=== PATIENT | male | born 1945 | race Caucasian/White ===

== ENCOUNTER 2019-01-13 08:45 | Outpatient (CLI) | payer MEDICARE, BC, SELFPAY ==
[2019-01-13 09:28] LABS: Hemoglobin A1C 5.4 % (4.5-6.2)
[2019-01-13 10:19] LABS: Glucose 99 mg/dL (70-100)
== END 2019-01-13 09:05 ==
PROVIDERS: PCP Nurse Practitioner; Visit Provider Nurse Practitioner
DX: E11.9 Type 2 diabetes mellitus without complications (principal); R73.01 Impaired fasting glucose
CPT/HCPCS: 36415; 82947; 83036

== ENCOUNTER 2019-05-21 10:11 | Outpatient (REF) | payer MEDICARE, BC, SELFPAY ==
[2019-05-23 11:38] LABS: Campylobacter PCR SEE COMMENTS; Salmonella PCR SEE COMMENTS; Shiga Toxin PCR SEE COMMENTS; Shigella/Enteroinvasive Ecoli SEE COMMENTS
== END 2019-05-21 10:31 ==
LOC: LBN 10:11
PROVIDERS: PCP Nurse Practitioner; Visit Provider Family Medicine
DX: R19.7 Diarrhea, unspecified (principal)
CPT/HCPCS: 87329; 87505

== ENCOUNTER 2020-09-21 01:59 | Outpatient (CLI) | payer MEDICARE, BC, SELFPAY ==
[2020-09-23 23:23] LABS: Patient Race White; SARS-CoV-2 RNA Undetected (Undetected); SARS-CoV-2 Specimen Source Nasal
== END 2020-09-21 02:19 ==
PROVIDERS: PCP Nurse Practitioner; Visit Provider Family Medicine
DX: Z20.828 Contact with and (suspected) exposure to other viral communicable diseases (principal)
CPT/HCPCS: U0003

== ENCOUNTER 2020-11-27 03:27 | Outpatient (CLI) | payer MEDICARE, BC, SELFPAY ==
[2020-11-27 15:21] LABS: HCT 46.7 % (40.0-50.0); HGB 15.7 g/dL (13.5-17.5); MCHC 33.6 % (32.0-36.0); MCV 92.1 fL (80-95); MPV 10.1 fL (8.0-11.0); Platelet Count 241 10^3/uL (130-400); RBC 5.07 10^6/uL (4.36-5.78); RDW 12.2 % (11.8-14.1); RDW-SD 41.6 fL; WBC 8.27 10^3/uL (4.4-10.8)
[2020-11-27 16:03] LABS: Hemoglobin A1C 5.4 % (<5.7)
[2020-11-27 16:39] LABS: Calculated LDL 177 mg/dL (<100); Cholesterol 300 mg/dL (<200); HDL Cholesterol 53 mg/dL (40-60); Triglyceride 350 mg/dL (<150)
[2020-11-27 16:55] LABS: ALT 28 U/L (16-63); AST 17 U/L (15-37); Albumin 3.7 g/dL (3.4-5.0); Alkaline Phosphatase 71 U/L (46-116); Anion Gap 9.8 mmol/L (3-11); BUN 16 mg/dL (7-18); Bilirubin, Total 0.8 mg/dL (0.2-1.0); CO2 27.2 mmol/L (21.0-32.0); CREATININE 1.19 mg/dL (0.70-1.30); Calcium 8.8 mg/dL (8.5-10.1); Chloride 105 mmol/L (98-107); Glucose 110 mg/dL (74-106); Sodium 142 mmol/L (136-145); Total Protein 6.9 g/dL (6.4-8.2); Vitamin B12 594 pg/mL (193-986)
== END 2020-11-27 03:47 ==
PROVIDERS: Nurse Practitioner; PCP Nurse Practitioner; Visit Provider Nurse Practitioner
DX: E11.9 Type 2 diabetes mellitus without complications (principal); E78.5 Hyperlipidemia, unspecified; E53.8 Deficiency of other specified B group vitamins; J02.9 Acute pharyngitis, unspecified
CPT/HCPCS: 80053; 80061; 85027; 82607; 83036; 84443

== ENCOUNTER 2020-12-05 02:46 | Outpatient (CLI) | payer MEDICARE, OTHER, SELFPAY ==
--- NOTE | 2020-12-05 08:00 | DI.US_ITS ---
EXAM: US THYROID CLINICAL HISTORY: tender r thyroid lobe,SORE THROAT, ACUTE PHARYNGITIS,J02.9. TECHNIQUE: Ultrasound thyroid performed using standard protocol. COMPARISON: No exams were available for comparison FINDINGS: The right thyroid lobe measures 0.9 cm AP x 2 centimetres wide by 4.2 cm cephalocaudal. There are 3 focal findings in the right lobe. Inferiorly there is a 2 millimeter benign colloid cyst . More superiorly there is a small 2 x 2 millimeters solid nodule. At the midpole level there is a well-defined solid nodule measuring 5 x 5 x 4 millimeters which is relatively isoechoic to the surrou nding parenchyma and is wider than taller with smooth well-defined margins and no echogenic foci ther ein. Total points =3 Isthmus measures 1.5 millimeters thick and does not contain nodules. The left thyroid lobe measures 0.9 centimeters AP x 1.9 centimetres wide by 3.8 centimeters cephaloca udal. There is a solitary finding in the left lobe which is a tiny 1 x 1.3 millimeter benign colloid cyst. There is no significant lymphadenopathy. However, incidentally noted is significant noncalcified stefania que in the proximal right internal carotid artery which is associated with elevated velocities/hemody namically significant stenosis. IMPRESSION: 1. Both thyroid lobes exhibit normal size, as does the isthmus. 2. There is a 5 x 4 millimeter solid small nodule in the mid aspect of the right thyroid lobe, as trudi cribed above. TiRads 3. Recommend repeat thyroid ultrasound in 6 months. 3. Incidentally noted is significant atherosclerotic disease in the right internal carotid artery as described above. Recommend follow-up bilateral carotid artery ultrasound Doppler study. DATA REPOSITORY:
== END 2020-12-05 03:06 ==
PROVIDERS: PCP Nurse Practitioner; Visit Provider Nurse Practitioner
DX: J02.9 Acute pharyngitis, unspecified (principal); E04.1 Nontoxic single thyroid nodule; I65.21 Occlusion and stenosis of right carotid artery
CPT/HCPCS: 76536

== ENCOUNTER 2020-12-13 01:09 | Outpatient (CLI) | payer MEDICARE, OTHER, SELFPAY ==
--- NOTE | 2020-12-13 07:15 | DI.US_ITS ---
EXAM: US CAROTID CLINICAL HISTORY: High velocity, stenosis noted right, on thyroid US,i65.21 TECHNIQUE: Ultrasound performed using standard protocol. COMPARISON: US US THYROID from 12/05/2020 FINDINGS: Duplex evaluation of the carotid circulation was performed according the usual protocol. There is mi ld visible atheromatous plaque in the carotid bifurcations bilaterally. There is flow velocity eleva tion in proximal to mid internal carotid arteries bilaterally consistent with 50-69 percent luminal d iameter stenosis. No other significant findings in common, internal, or external carotid arteries. There is bilateral antegrade vertebral flow. IMPRESSION: Elevated flow velocities in internal carotid arteries bilaterally consistent with 50-69 percent lumin al diameter stenosis in both right and left internal carotid arteries. DATA REPOSITORY:
== END 2020-12-13 01:29 ==
PROVIDERS: PCP Nurse Practitioner; Visit Provider Nurse Practitioner
DX: I65.23 Occlusion and stenosis of bilateral carotid arteries (principal)
CPT/HCPCS: 93880

== ENCOUNTER 2020-12-21 08:19 | Outpatient (CLI) | payer MEDICARE, OTHER, SELFPAY ==
[2020-12-22 16:57] LABS: COVID-19 RT-PCR Result NEGATIVE (Negative)
== END 2020-12-21 08:39 ==
PROVIDERS: PCP Nurse Practitioner; Visit Provider Family Medicine
DX: Z11.52 Encounter for screening for COVID-19 (principal); Z01.810 Encounter for preprocedural cardiovascular examination
CPT/HCPCS: U0003

== ENCOUNTER 2020-12-27 06:35 | Outpatient (CLI) | payer MEDICARE, OTHER, SELFPAY ==
--- NOTE | 2020-12-27 09:00 | ETT_ITS ---
APPROVED REPORT Exam: Exercise Treadmill Patient Location: Out-Patient Room/Bed: Stress Nurse: Ladi Vazquez RN Ordering Provider:YRNIfeoma LEE, Contact Number: [phone] BMI: 22.52 Baseline Rhythm: Sinus Bradycardia Indications: chest pain, hyperlipidemia, reaction to MPI Medical History Medical History: Hypertension, hyperlipidemia, carotid stenosis, thyroid nodule Cardiac Medications: atorvastatin Allergies: Penicillin Cardiac Risk Factors: Hypertension, hyperlipidemia, smoker (former), PVD/VCD Previous Cardiac Procedures: None Pretest Chest Pain Characteristics: None Exercise History: Physically active Physical Disabilities: None Lung Sounds: Clear to auscultation Heart Sounds: Regular Stress Test Details Test: Exercise stress testing was performed using a Derrick protocol. Rest Stress HR Resting HR Supine: 51 bpm Max Heart Rate (APMHR): 147 bpm Resting HR Standin/82 bpm Target HR (85% APMHR): 124 bpm Max HR Achieved: 167 bpm % of APMHR: 113 Recovery HR: 90 bpm HR response to stress: Normal HR response to stress BP Resting BP Supine: 150/82 mmHg Resting BP Standin/86 mmHg Max BP: 166/72 mmHg Recovery BP: 154/70 mmHg ECG Resting ECG: Sinus Bradycardia Ectopy: PVC Stress ECG: Sinus Tachycardia ST Change: Upsloping ST depression Arrhythmia: PVC Recovery ECG: Sinus Rhythm Recovery ST Change: No significant ST segment changes noted Clinical Reason for Termination: Light fatigue Stress Symptoms: Light fatigue Exercise duration: 14 min01 sec Highest Stage Reached: 5 Exercise capacity: 15 METs Chinchilla Treadmill Score: 15 Rate Pressure Product: [id number] Stress ECG Conclusion 1. The patient exercised for 14 minutes (15 METS). Exercise was stopped due to fatigue. 2. Patient no symptoms suggestive of ischemia. 3. There is no evidence of ischemia on the ECG portion of the exam. 4. The Chinchilla Score (13) estimates an annual cardiovascular mortality of 0% and a five year survival of 96%. Using the Chinchilla Score there is a low probability of any angiographic coronary disease. Chinchilla Treadmill Score is 15 which is Low risk. Stress Test Summary STAGE Time (mins) Speed (mph) Grade (%) HR BP SYMPTOMS METS Supine 51 150/82 Standing 68 144/86 1 3 1.7 10 100 152/80 4.6 2 6 2.5 12 119 158/76 7 3 9 3.4 14 136 166/72 10.2 4 12 4.2 16 141 12.9 5 15 5.0 18 160 17.2 1 min recovery 133 156/60 3 min recovery 85 164/68 6 min recovery 90 154/70
== END 2020-12-27 06:55 ==
PROVIDERS: PCP Nurse Practitioner; Visit Provider Nurse Practitioner
DX: R07.9 Chest pain, unspecified (principal); E78.5 Hyperlipidemia, unspecified; R94.39 Abnormal result of other cardiovascular function study; I10 Essential (primary) hypertension; Z87.891 Personal history of nicotine dependence; I73.9 Peripheral vascular disease, unspecified
CPT/HCPCS: 93016; 93018; 93017

== ENCOUNTER → 2021-01-31 09:01 | Outpatient (BNVA) | payer MEDICARE, OTHER, SELFPAY | PROVIDERS: PCP Nurse Practitioner; Referring Provider Nurse Practitioner; Visit Provider Physical Therapy Assistant | DX: R19.5 Other fecal abnormalities (principal) | CPT/HCPCS: 99203 ==

== ENCOUNTER 2021-03-04 04:13 | Outpatient (CLI) | payer MEDICARE, OTHER, SELFPAY ==
[2021-03-04 12:10] LABS: Source Nasal/Nares
[2021-03-04 17:16] LABS: COVID-19 PCR Negative (Negative)
== END 2021-03-04 04:14 | disposition home or self-care (01) ==
LOC: LBO 04:13
PROVIDERS: PCP Nurse Practitioner; Visit Provider Surgery
DX: Z20.822 Contact with and (suspected) exposure to COVID-19 (principal); Z01.818 Encounter for other preprocedural examination
CPT/HCPCS: 87635

== ENCOUNTER 2021-03-06 08:04 | Day surgery (SDC) | payer MEDICARE, OTHER, SELFPAY ==
--- NOTE | 2021-03-06 06:38 | W.PREOPHP ---
Date of service: 03/06/21 Time of Service: 08:52 Assessment and Plan Assessment and plan (1) Positive colorectal cancer screening using Cologuard test: Status: Acute Assessment and plan: The patient is here for Colonoscopy pre-op. He has no family history of colon cancer. He has not had any bowel habit changes. -Discussed colonoscopy bowel prep as well as the procedure. Discussed possible complications of the procedure to include bleeding, pain, perforation, missed small lesion/polyp, sore throat, aspiration and adverse reaction to the medications. Questions were answered to patient?s satisfaction. No guarantees were implied or given History of Present Illness Narrative: 75 y/o male with history of carotid artery stenosis and anxiety presents for colonoscopy pre-op after having a postive cologuard test. He has never had a Colonoscopy. He denies a family history of colon cancer. He denies any changes in bowel habits including bloody or black tarry stools, abdominal pain, diarrhea or constipation. He denies constitutional symptoms. Denies use of marijuana or any other recreational or illegal drugs. He denies chest pain, palpitations, dyspnea or dyspnea with exertion. He walks for 75 mins/day. He denies prior family history of adverse reactions or complications with anesthesia. He has never had anesthesia. The patient denies any history of stroke, ND, seizures, bleeding or clotting disorders. He denies having any implanted metal in his body. No changes in his health since he was last seen in the office Review of Systems Cardiovascular Cardiovascular: Denies chest pain, Denies chest pain at rest, Denies irregular heart rhythm, Denies dyspnea and Denies dyspnea on exertion Respiratory Respiratory: Denies cough, Denies dyspnea and Denies dyspnea on exertion Gastrointestinal Gastrointestinal: Reports as per HPI Genitourinary Genitourinary: Denies dysuria, Denies urinary incontinence and Denies urinary urgency Endocrine Endocrine: Reports system reviewed and no additional complaints, except as documented Hematologic/Lymphatic Hematologic/Lymphatic: Denies easy bruising and Denies lymphadenopathy [facility] Medical History Anxiety B12 deficiency Bilateral hand pain (10/11/15) Carotid stenosis, right Cervicalgia (12/25/20) Dr. Hunter to PT Chest pain due to psychological stress Chronic sore throat (02/11/16) Eczema (02/26/15) Epicondylitis (02/26/15) Hyperlipidemia (02/26/15) Left inguinal hernia (10/31/15) Low back pain (02/26/15) Nasal lesion Pain in left testicle (10/31/15) Positive colorectal cancer screening using Cologuard test Right foot pain (10/11/15) Right inguinal hernia (10/31/15) Right thyroid nodule 11/2020, repeat 02/2021 Rosacea (02/26/15) Family History Father No problems noted. Mother No problems noted. Social History Smoking/Tobacco Use Status: Former Tobacco Use Smoking risk assessment performed?: Yes Alcohol Intake: current Alcohol Intake frequency: 3 or more drinks per day Alcohol type: wine and hard liquor Drug use: Never Substance use type: does not use Do you feel safe at home: Yes Do you feel safe in your relationship?: Yes Meds Home Medications and Allergies Allergies Allergy/AdvReac Type Severity Reaction Status Date / Time Penicillins Allergy Unknown unknown Verified 03/06/21 08:23 Home Medications Medication Instructions Recorded Confirmed Type aspirin 81 mg tablet,delayed 81 mg PO DAILY 01/31/21 03/06/21 History release omega-3 fatty acids 1,000 mg 1,000 mg PO DAILY 01/31/21 03/06/21 History capsule atorvastatin 20 mg PO DAILY 03/05/21 03/06/21 History copper 2 mg PO DAILY 03/06/21 03/06/21 History zinc 10 mg PO DAILY 03/06/21 03/06/21 History Exam Const General: healthy appearing and comfortable Resp Effort & Inspection: normal respiratory effort Auscultation: clear to auscultation bilaterally Cardio Rate: regular rate Rhythm: regular rhythm Heart Sounds: no click, no gallops and no murmurs
--- NOTE | 2021-03-06 06:41 | W.COLOREPORT ---
Date of service: 03/06/21 Time of Service: 09:24 Colonoscopy Report Date of procedure: 03/06/21 Pre-op diagnosis general: + Cologuard Post-op diagnosis procedure note: other (colorectal polyps, mild diverticulosis) Procedure: Colonoscopy with polypectomy Surgeon: Dana Nguyen Anesthesia Type: General:No Airway (ASA 2/Bret Case, RED) Estimated blood loss (mL): 3 Pathology: other (Transverse polyp, sigmoid polyp) Complications: None Disposition: same day Indications: The patient is here for Colonoscopy pre-op. He has no family history of colon cancer. He has not had any bowel habit changes. -Discussed colonoscopy bowel prep as well as the procedure. Discussed possible complications of the procedure to include bleeding, pain, perforation, missed small lesion/polyp, sore throat, aspiration and adverse reaction to the medications. Questions were answered to patient?s satisfaction. No guarantees were implied or given Prep: Miralax/Dulcolax Procedure Start Time: :24 Procedure End Time: :46 Retraction Time: 16 minutes Findings: 2 small polyps mild sigmoid diverticulosis Procedure Description: After informed consent was obtained the patient was taken to the procedure room and placed in a left decubitous position. Monitors were applied and a time out was done. The patients name, date of , procedure, allergies to medications and metal in their body was reviewed. The patient was then sedated. Once sedated and comfortable a rectal exam was done. External exam was normal. Internal exam revealed a normal sphincter tone and no palpable masses. The prostate felt normal. The scope was then introduced and retro-flexed. No internal hemorrhoids, polyps or masses were identified on retro-flexion. The scope was then advanced to the cecum without difficulty. The ileocecal vlave and appendiceal orifice were identified. The prep was adequate. The scope was then slowly retracted over 16 minutes back into the rectum. Polyps were removed with cold forceps in the transverse colon and sigmoid colon. There was mild diverticulosis in the sigmoid colon noted. The scope was removed and the patient was woken up and taken back to Same day surgery in stable condition. The patient tolerated the procedure well and there were no immediate complications. Follow up: The patient should follow up in 5 years unless they develop changes in bowel habits or other new gastrointestinal complaints.
--- NOTE | 2021-03-06 06:42 | PDOC.DSDIS_ITS ---
Discharge Plan Disposition Patient Disposition: HOME Condition: Good Discharge Details Reason For Visit: colonoscopy Attending Provider: Dana Nguyen Primary Care Provider: Michelle Izquierdo Home Meds and New Rx's Prescriptions: Continued aspirin [Adult Aspirin Regimen] 81 mg tablet,delayed release (DR/EC) 81 mg PO DAILY RF: 0 omega-3 fatty acids 1,000 mg capsule 1,000 mg PO DAILY RF: 0 atorvastatin 40 mg tablet 20 mg PO DAILY RF: 0 copper 2 mg Tablet 2 mg PO DAILY RF: 0 zinc 10 mg Tablet 10 mg PO DAILY RF: 0 coenzyme Q10 [CoQ-10] 30 mg Capsule PO DAILY RF: 0 vitamin B complex Capsule 1 cap PO DAILY RF: 0 copper 2 mg Tablet PO RF: 0 Heart And Body Extract RF: 0 Ligaplex PO RF: 0 nutritional supplement-fiber Liquid RF: 0 Herincare RF: 0 Discontinued polyethylene glycol 3350 17 gram/dose powder 238 g PO ONCE Qty: 238 RF: 0 bisacodyl [Dulcolax (bisacodyl)] 5 mg tablet,delayed release (DR/EC) 5 mg PO ONCE Qty: 4 RF: 0 Discharge Instructions Instructions: Colorectal Polyps (DC), Diverticulosis (DC) Additional Instructions: Findings: 2 small polyps Mild diverticulosis Follow up: Most likely 5 years. I will send a letter with results Please call if you develop: fevers >101.5 Nausea or Vomiting Abdominal pain that is not transient DAY SURGERY UNIT POST ENDOSCOPY INSTRUCTIONS 1. Because there will be medication in your system for the next 24 hours, you may feel a little sleepy. Your coordination will be affected. Therefore: a. Do not drive or operate dangerous equipment for 24 hours. b. Do not drink alcohol beverages for 24 hours (not even beer). c. Plan to go home and rest for the day. 2. Generally there are no restrictions on your activity after a day or so has gone by, but you may feel a bit fatigued for a few days. 3 After you arrive home you may have a light meal and return to a normal diet as you can tolerate it without feeling sick to your stomach. 4. After surgery, you may feel pain or discomfort. This should be only transient, but if it persists please contact your doctor. 5. If there are any questions regarding the findings of your procedure, please f eel free to contact your doctor. 6. If you are unable to contact your doctor with a problem, contact the hospital at [phone]. 4. Continue all your regular medications unless directed otherwise. I understand the above instructions and have no questions. Signature of Patient or Responsible Adult Escort Date/Time Name of Responsible Adult Escort Signature of Nurse Date/Time Activity:: Activity as Tolerated Diet:: High Fiber Diet Discharge Orders Discharge Orders: Discharge Order (Routine); Ordered 03/06/21 Ordered By: Dana Nguyen DS: Diagnosis Discharge Diagnosis (1) Positive colorectal cancer screening using Cologuard test: Status: Acute
[2021-03-06 08:31] VITALS: BP 144/81; PULSE 72; RESP 16; TEMP 36.5; O2SAT 96
[2021-03-06] MEDS: Lactated Ringers 1,000 ML 80 ML IV (08:45)
--- NOTE | 2021-03-06 09:35 | BOWEL_PTH ---
PATIENT: Keyon Cohen LOC: MIC U#:[id number] AGE/SX: 75/M ROOM: RE03/06/[address]: Dana Nguyen MD : 1945 BED: DIS: 03/06/2021 SPEC #: [id number] RECD: 03/06/21 12:53 STATUS: NONA REQ #: [id number] ASHLEY: 03/06/21 09:[address]: Dana Nguyen DEPT: Surgical Specimen RECD BY: Renate Esquivel ENTERED: 03/06/21 12:54 SP TYPE: Bowel OTHR DR: Michelle Izquierdo APRN Tissues: 1 - BIOPSY BOWEL 2 - BIOPSY BOWEL Procedures: GROSS AND MICRO LEVEL 4 Comments: [id number]
== END 2021-03-06 10:40 | disposition home or self-care (01) ==
LOC: SUR 08:04
PROVIDERS: PCP Nurse Practitioner; Visit Provider Surgery
PROC: 0DJD8ZZ Inspection of Lower Intestinal Tract, Via Natural or Artificial Opening Endoscopic (ICD-10-PCS; CPT 45378; principal; 2021-03-06 09:30)
DX: D12.3 Benign neoplasm of transverse colon; K57.30 Diverticulosis of large intestine without perforation or abscess without bleeding
CPT/HCPCS: 45380; 88305; NC; J2001; J2250

== ENCOUNTER 2021-06-12 01:22 | Outpatient (CLI) | payer MEDICARE, OTHER, SELFPAY ==
--- NOTE | 2021-06-12 08:15 | DI.US_ITS ---
Exam(s) US CAROTID EXAM: US CAROTID CLINICAL HISTORY: f/u bilateral 50-69 stenosis,RT CAROTID STENOSIS,I65.21. TECHNIQUE: Ultrasound carotids performed using grayscale, color-flow, and spectral Doppler imaging. COMPARISON: US US CAROTID from 12/13/2020 US US CAROTID from 12/13/2020 FINDINGS: RIGHT CAROTID ARTERY: Plaque: Mild plaque in the proximal internal carotid artery.. LEFT CAROTID ARTERY: Plaque: Mild soft plaque in the proximal internal carotid artery.. VERTEBRAL ARTERIES: Antegrade flow. Measurements: R Bulb: 65.6cm/s PS / 14.1cm/s ED R CCA: 79.1cm/s PS / 15.4cm/s ED R ECA: 94.7cm/s PS / 11.6cm/s ED R ICA Prox: 152.7cm/s PS /42.8cm/s ED R ICA Mid: 148.1cm/s PS / 33.5cm/s ED R ICA Distal: 153.9cm/s PS /32.4cm/s ED R Vert: 53.8cm/s PS / 12.7cm/s ED R SVR: 1.95 R DVR: 2.1 L Bulb: 64.2cm/s PS /11.6cm/s ED L CCA: 79.2cm/s PS / 12.7cm/s ED L ECA: 124.4cm/s PS /10.1cm/s ED L ICA Prox:190.2cm/s PS / 52.7cm/s ED L ICA Mid: 185.1cm/sPS / 41cm/s ED L ICA Distal: 111.3cm/s PS / 29.6cm/s ED L Vert: 51.5cm/s PS / 13.3cm/s ED L SVR: 2.4 L DVR: 4.15 IMPRESSION: Mild soft plaque in the proximal internal carotid arteries. Systolic velocity measurements are eleva gus, consistent with a stenosis of 50-69 percent bilaterally.. No significant change when compared w ith the previous exam. Criteria for Carotid Stenosis: Normal: ICA PSV <125 cm/s no plaque or intimal thickening is visible. <50% stenosis: ICA PSV <125 cm/s and plaque or intimal thickening is visible. 50-69% stenosis: ICA PSV is 125-250 cm/s and plaque is visible. >70% stenosis to near occlusion: ICA PSV >250 cm/s with visible plaque and luminal narrowing. DATA REPOSITORY:
== END 2021-06-12 01:42 ==
PROVIDERS: PCP Nurse Practitioner; Visit Provider Nurse Practitioner
DX: I65.23 Occlusion and stenosis of bilateral carotid arteries (principal)
CPT/HCPCS: 93880

== ENCOUNTER 2021-06-13 03:30 | Outpatient (CLI) | payer MEDICARE, OTHER, SELFPAY ==
[2021-06-14 09:39] LABS: Homocysteine 9.8 umol/L (5.0-13.9)
[2021-06-14 21:25] LABS: Calculated LDL 152 mg/dL (<100); Cholesterol 232 mg/dL (<200); HDL Cholesterol 63 mg/dL (40-60); Triglyceride 85 mg/dL (<150)
== END 2021-06-13 03:31 | disposition home or self-care (01) ==
LOC: LBO 03:30
PROVIDERS: PCP Nurse Practitioner; Visit Provider Nurse Practitioner
DX: E78.5 Hyperlipidemia, unspecified (principal); I65.21 Occlusion and stenosis of right carotid artery; E53.8 Deficiency of other specified B group vitamins; R07.9 Chest pain, unspecified; F43.9 Reaction to severe stress, unspecified
CPT/HCPCS: 36415; 80061; 83090

== ENCOUNTER 2021-06-26 02:16 | Outpatient (CLI) | payer MEDICARE, OTHER, SELFPAY ==
--- NOTE | 2021-06-26 06:15 | DI.US_ITS ---
Exam(s) US THYROID EXAM: US THYROID CLINICAL HISTORY: f/u nodules. TECHNIQUE: Ultrasound thyroid performed using standard protocol. COMPARISON: US US THYROID from 12/05/2020 US US CAROTID from 06/12/2021 FINDINGS: RIGHT THYROID LOBE: Measures 1.3 cm AP x 1.8 cm wide x 3.8 cm craniocaudal LEFT THYROID LOBE: Measures 1.3 cm AP x 2.0 wide x 3.5 cm craniocaudal ISTHMUS: Normal thickness. There are no nodules in the isthmus. Significant nodules are as follows: RIGHT THYROID LOBE: Previously described 3 findings in the right thyroid lobe are again noted including a 2 millimeter be nign colloid cyst and a similar size 2 millimeter nodule. At the midpole level the previously describ ed well-defined small 5 by 5 x 4 millimeter nodule is again noted, unchanged in size, wider than tall er, well-defined and with no echogenic foci therein. Centrally isoechoic with mild hypo echo echo rin g. Total points =4 LEFT THYROID LOBE: Again contains a solitary benign finding which is a tiny benign colloid cyst. ISTHMUS: There are no significant nodules in the isthmus LYMPH NODES: There is no significant adenopathy. IMPRESSION: 1. Stable appearance of the previously described small 5 millimeter nodule in the right thyroid lobe. TiRads: 4 2. Appropriate follow-up is repeat ultrasound in 1 year 3. There is no significant lymphadenopathy. DATA REPOSITORY:
== END 2021-06-26 02:36 ==
PROVIDERS: PCP Nurse Practitioner; Visit Provider Nurse Practitioner
DX: E04.2 Nontoxic multinodular goiter (principal)
CPT/HCPCS: 76536

== ENCOUNTER 2021-10-02 03:32 | Outpatient (CLI) | payer MEDICARE, OTHER, SELFPAY ==
[2021-10-02 10:18] LABS: HCT 49.5 % (40.0-50.0); HGB 16.3 g/dL (13.5-17.5); MCH 31.1 pg (27.0-33.0); MCHC 32.9 % (32.0-36.0); MCV 94.5 fL (80-95); MPV 9.9 fL (8.0-11.0); Platelet Count 235 10^3/uL (130-400); RBC 5.24 10^6/uL (4.36-5.78); RDW 12.3 % (11.8-14.1); RDW-SD 42.7 fL; WBC 6.09 10^3/uL (4.4-10.8)
[2021-10-02 10:27] LABS: Bilirubin Negative (Negative); Blood Negative (Negative); Clarity Clear (Clear); Glucose Negative (Negative); Ketones Negative (Negative); Leukocyte Esterase Negative (Negative); Nitrite Negative (Negative); Specific Gravity >= 1.030 (1.005-1.025); Urobilinogen 0.2 EU/dL (Up TO 0.2)
[2021-10-02 11:46] LABS: ALT 34 U/L (16-63); AST 18 U/L (15-37); Albumin 3.8 g/dL (3.4-5.0); Alkaline Phosphatase 64 U/L (46-116); Anion Gap 6.6 mmol/L (3-11); BUN 18 mg/dL (7-18); Bilirubin, Total 0.8 mg/dL (0.2-1.0); CO2 33.4 mmol/L (21.0-32.0); CREATININE 1.1 mg/dL (0.70-1.30); Calcium 9.1 mg/dL (8.5-10.1); Chloride 106 mmol/L (98-107); Ferritin 144 ng/mL (26-388); Glucose 52 mg/dL (74-106); Potassium 4.2 mmol/L (3.5-5.1); Sodium 146 mmol/L (136-145); TSH (W/Ref FT4) 1.69 uIU/mL (0.36-3.74); Vitamin B12 600 pg/mL (193-986)
[2021-10-03 01:40] LABS: Vitamin D 25 Total 42.9 ng/mL (30-100)
[2021-10-03 10:51] LABS: Lyme Ab w Rflx to Lyme Confirm Negative (Negative)
[2021-10-03 20:19] LABS: Anaplasma phagocytophilum Negative (Negative); B. miyamotoi PCR Negative (Negative); Babesia divergens/MO-1 Negative (Negative); Babesia duncani Negative (Negative); Babesia microti Negative (Negative); Ehrlichia chaffeensis Negative (Negative); Ehrlichia ewingii/canis Negative (Negative); Ehrlichia muris eauclairensis Negative (Negative)
== END 2021-10-02 03:33 | disposition home or self-care (01) ==
LOC: LBO 03:32
PROVIDERS: PCP Nurse Practitioner; Visit Provider Nurse Practitioner
DX: R53.83 Other fatigue (principal); E55.9 Vitamin D deficiency, unspecified; K63.5 Polyp of colon
CPT/HCPCS: 36415; 80053; 82306; 85027; 87798; 81003; 82607; 82728; 84443; 86618

== ENCOUNTER 2022-05-23 02:22 | Outpatient (CLI) | payer MEDICARE, OTHER, SELFPAY ==
--- OUTSIDE RECORDS SUMMARY | 2022-05-23 02:23 | XMS_ITS | Clinical Summary ---
:1945 Author Organization [facility] Address [address] [place] [id number] Care Team Providers Name Role Phone Unknown, Provider Primary Care Provider Social History Tobacco Use Types Packs/Day Years Used Date Never Assessed Sex Assigned at Date Recorded Not on file Plan of Treatment Health Maintenance Due Date Last Done Comments Fall Risk Screening 2012 Insurance Payer Benefit Plan / Subscriber ID Effective Dates Phone Addre ss Type Group AETNA GENERIC AETNA [id number] Effective for Commercial GL all dates MEDICARE MEDICARE A/B [id number] 2012-Saran Villarreal JACKIE [id number] [place] [phone] Care Teams Storage Battery Inspector Relationship Specialty Start Date End Date Unknown, Provider, PCP - General 02/28/21
--- OUTSIDE RECORDS SUMMARY | 2022-05-23 02:23 | XMS_ITS | Encounter Summary ---
:1945 Author Organization [facility] Address [address] [place] [address] Care Team Providers Name Role Phone Unknown, Provider Primary Care Provider Encounter Details Date Type Department Care Team Description 10/02/2021 Lab Requisition [facility] Outr Resulting Lab, Pathology & Laboratory Provider [facility] [address] [place] [address] Social History Tobacco Use Types Packs/Day Years Used Date Never Assessed Sex Assigned at Date Recorded Not on file documented as of this encounter Plan of Treatment Not on filedocumented as of this encounter Procedures Procedure Name Priority Date/Time Associated Diagnosis Comme nts LYME AB Routine 10/02/2021 10:05 EDT Results for this procedure are i n the results section . documented in this encounter Results LYME AB (10/02/2021 10:05 EDT) Pathologist Sig nature Lyme Ab Negative Negative [facility] Specimen Blood - Venous blood (substance) Performing Organization Address City/State/ZIP Code Phon e Number [facility] [address] [place] [address] SERVICES documented in this encounter Visit Diagnoses Not on filedocumented in this encounter Care Teams Jackhammer Splitter Operator Relationship Specialty Start Date End Date Unknown, Provider, PCP - General 02/28/21 documented as of this encounter
--- OUTSIDE RECORDS SUMMARY | 2022-05-23 02:24 | XMS_ITS | Encounter Summary ---
:1945 Author Organization [facility] [place] [address] Care Team Providers Name Role Phone Michelle Izquierdo YUSRA Primary Care Provider Reason for Visit Reason Comments Skin Lesion Encounter Details Date Type Department Care Team Description 10/22/2021 Office Visit Dermatology at [facility] [place] (act vanesa Yeager MD keratosis) [address] [facility]ie B DERMATOLOGY [place], [place] [id number] [phone] Social History Tobacco Use Types Packs/Day Years Used Date Former Smoker Smokeless Tobacco: Never Used Sex Assigned at Date Recorded Not on file documented as of this encounter Progress Notes Cesar Hogan MD - 10/22/2021 2:45 PM EST Problem: 1. Recurrent lesion left nasal sidewall 2. Vitiligo 3. Family history of vitiligo in his mother Keyon follows up and states that after last being seen by me in May for our first visit together,he had recurrence of the LN2 treatment site in June. He is here today to have this checked. Physical examination reveals a erythematous patch with some overlying crust scabbing present on the left nasal sidewall. Consistent with actinic keratosis, recurrent versus early SCCA versus BCCA Assessment and plan: Rule out SCC versus BCCA, possible hyperkeratotic actinic keratosis, recurrent left nasal sidewall 1. After obtaining informed consent site was anesthetized and removed with shave C&D 2. Triple antibiotic ointment and Band-Aid placed 3. We will notify patient of his biopsy results in 1 week. 4. After curettage, site measured 8 mm in diameter 5. Return to clinic will be as needed. CC: Michelle Izquierdo APRN documented in this encounter Plan of Treatment Upcoming Encounters Date Type Specialty Care Team Description 08/08/2022 Office Visit Dermatology Cesar Hogan MD [address] [facility] D[facility] [place], [place] [address] (Wo rk) documented as of this encounter Visit Diagnoses Diagnosis [place] (actinic keratosis) Actinic keratosis documented in this encounter Care Teams Metal Checker Relationship Specialty Start Date End Date Michelle Izquierdo APRN PCP - General Internal Medicine 03/21/21 [address] [place] [address] documented as of this encounter
--- OUTSIDE RECORDS SUMMARY | 2022-05-23 02:24 | XMS_ITS | Encounter Summary ---
:1945 Author Organization [facility] Address [address] [place] [address] Care Team Providers Name Role Phone Unknown, Provider Primary Care Provider Encounter Details Date Type Department Care Team Description 12/21/2020 Lab Requisition [facility] Outr Resulting Lab, Pathology & Laboratory Provider [facility] [address] [place] [address] Social History Tobacco Use Types Packs/Day Years Used Date Never Assessed Sex Assigned at Date Recorded Not on file documented as of this encounter Plan of Treatment Not on filedocumented as of this encounter Procedures Procedure Name Priority Date/Time Associated Comments Diagnosis DO NOT ORDER Today 12/21/2020 11:02 Results for this STANDALONE - BROAD EST procedure are in COVID TEST the results section. COVID-19 TESTING Routine 12/21/2020 11:02 Results for this EST procedure are i n the results section. documented in this encounter Results DO NOT ORDER STANDALONE - BROAD COVID TEST (12/21/2020 11:02 EST) COVID-19 rt-PCR NEGATIVE Negative [facility] Result Comment: LABORATORY 2019-novel Coronavirus (2019 -nCoV) not detected by the qRT-PCR assay. Consider testing for other respiratory viruses or re-collecting for 2019-nCoV testing. Note: Optimum timing for peak viral levels du ring infections caused by 20 -nCoV have not been determined. Collection of multiple specimens from the same patient may be necessary to detect the virus. Limitations Positive results are indicat karolina of active infection with SARS-CoV-2 but do not rule out bacterial infection or co-infection with other viruses. The agent detected may not be the definite cause of diseas e. In addition, detection of viral RNA may not indicate the presence of infectious virus or that SARS-CoV-2 is the causative agent for clinical symptoms. Negative results do not prec lude SARS-CoV-2 infection and should not be used as the sole basis for patient management decisions. Negative results must be combined with clinical observations, patient his tory, and epidemiological in formation. False negative results may also occur if amplification inhibitors are present in the specimen or if inadequate numbers of organisms are present in the specimen. Op timum specimen types and tri ing for peak viral levels during infections caused by SARS-CoV-2 have not been fully determined. Collection of multiple specimens (types and time points) from the same patient may be necessary to detect the virus. The test was validated for u se with upper respiratory specimens obtained via nasopharyngeal or oropharyngeal swabs in VTM, UTM, M4, M5, M6, saline, and MTM media. The performance of this test has not be en established for other spe cimens. Specimens collected using other FDA recommended Specimen Collection Materials listed in the FDA COVID-19 [employer] communication (February 23, 2020) are pr ocessed with the caveat that they were not all validated for use with this test and the result must be interpreted in this context. Furthermore, a false negative results may occur if a specimen is improperly collected, transported or handled. If the virus mutates in the RT-PCR target region, SARS-CoV-2 may not be detected or may be detected less predictably. Inhibitors or other types of interference may produce a false negative result. An interference study evaluating the effect of common cold medications was not performed. This test is not FDA-cleared but its performance characteristics were established by our CLIA-certified, CAP-accredited, high complexity laboratory in accordance with CLIA regulations, College of [employer] an Pathologists (CAP) guidel devon (Feb 16, 2020), and FDA guidance (Jan 28, 2020). This test is only for use un kofi the Food and Drug Administration's Emergency Use Authorization. Specimen Swab - Entire nasopharynx (body structur e) Performing Organization Address City/State/ZIP Code Phon e Number [facility] [place] [place] COVID-19 TESTING (12/21/2020 11:02 EST) COVID-19 rt-PCR NEGATIVE Negative [facility] Result Comment: LABORATORY 2019-novel Coronavirus (2019 -nCoV) not detected by the qRT-PCR assay. Consider testing for other respiratory viruses or re-collecting for 2019-nCoV testing. Note: Optimum timing for peak viral levels du ring infections caused by 20 19-nCoV have not been determined. Collection of multiple specimens from the same patient may be necessary to detect the virus. Limitations Positive results are indicat karolina of active infection with SARS-CoV-2 but do not rule out bacterial infection or co-infection with other viruses. The agent detected may not be the definite cause of diseas e. In addition, detection of viral RNA may not indicate the presence of infectious virus or that SARS-CoV-2 is the causative agent for clinical symptoms. Negative results do not prec lude SARS-CoV-2 infection and should not be used as the sole basis for patient management decisions. Negative results must be combined with clinical observations, patient his tory, and epidemiological in formation. False negative results may also occur if amplification inhibitors are present in the specimen or if inadequate numbers of organisms are present in the specimen. Op timum specimen types and tri ing for peak viral levels during infections caused by SARS-CoV-2 have not been fully determined. Collection of multiple specimens (types and time points) from the same patient may be necessary to detect the virus. The test was validated for u se with upper respiratory specimens obtained via nasopharyngeal or oropharyngeal swabs in VTM, UTM, M4, M5, M6, saline, and MTM media. The performance of this test has not be en established for other spe cimens. Specimens collected using other FDA recommended Specimen Collection Materials listed in the FDA COVID-19 [employer] communication (February 23, 2020) are pr ocessed with the caveat that they were not all validated for use with this test and the result must be interpreted in this context. Furthermore, a false negative results may occur if a specimen is improperly collected, transported or handled. If the virus mutates in the RT-PCR target region, SARS-CoV-2 may not be detected or may be detected less predictably. Inhibitors or other types of interference may produce a false negative result. An interference study evaluating the effect of common cold medications was not performed. This test is not FDA-cleared but its performance characteristics were established by our CLIA-certified, CAP-accredited, high complexity laboratory in accordance with CLIA regulations, College of [employer] an Pathologists (CAP) guidel devon (Feb 16, 2020), and FDA guidance (Jan 28, 2020). This test is only for use un kofi the Food and Drug Administration's Emergency Use Authorization. Performing Lab [facility] LABORATORY SERVICES Specimen Swab Performing Organization Address City/State/ZIP Code Phon e Number [facility] [address] [place] [address] SERVICES [facility] [place], [place] documented in this encounter Visit Diagnoses Not on filedocumented in this encounter Care Teams Keyboard Instrument Repairer Relationship Specialty Start Date End Date Unknown, Provider, PCP - General 02/28/21 documented as of this encounter
--- OUTSIDE RECORDS SUMMARY | 2022-05-23 02:24 | XMS_ITS | Clinical Summary ---
:1945 Author Organization [facility] [place] [address] Care Team Providers Name Role Phone Michelle Izquierdo YUSRA Primary Care Provider Allergies Active Allergy Reactions Severity Noted Date Comments Penicillins Other (See Comments) 03/06/2021 Medications Medication Sig Dispensed Refills Start Date End Date Status atorvastatin 20 mg. 0 05/04/2021 Active (Lipitor) 40 mg Tablet co-enzyme Q-10 30 mg Daily 0 03/06/2021 Active Capsule UNABLE TO FIND Med Name: Heart and 0 Active Body Supplement UNABLE TO FIND Med Name: Balance 0 Active of Nature nutritional supplement Active Problems No known active problems Encounters Date Type Specialty Care Team Description 05/05/2022 Hospital Encounter Lab 05/05/2022 Office Visit Dermatology eCsar Hogan [place] (actin ic keratosis); Vitiligo; History of SCC (squamous cell carcinoma) of skin from Last 3 Months Social History Tobacco Use Types Packs/Day Years Used Date Former Smoker Smokeless Tobacco: Never Used Sex Assigned at Date Recorded Not on file Plan of Treatment Upcoming Encounters Date Type Specialty Care Team Description 08/08/2022 Office Visit Dermatology Cesar Hogan MD [address] [facility] DERMATOLOGY [place], [place] [address] (Wo rk) Health Maintenance Due Date Last Done Comments Covid-19 Vaccine (#1) 1952 Hepatitis C Screening 1965 Tdap adult 1966 Tetanus vaccine 1966 Colonoscopy 1992 Zoster vaccine (1 of 2) 1997 Advance Directive 2002 AAA Screen 2012 Pneumoccocal Vaccine: 65+ (1 - PCV) 2012 Influenza (Flu) vaccine (1 of 1 - Influenza standard 07/31/2021 series) Procedures Procedure Name Priority Date/Time Associated Diagnosis Comme nts SURGICAL PATHOLOGY Routine 05/05/2022 12:00 PM Yesica amaya for this REPORT EDT procedure are i n the results section. from Last 3 Months Results Surgical Pathology Report (05/05/2022 12:00 PM EDT) Component Value Ref Test Analysis Performed At [facility] Range Method Time Signature Surgical [id number] ? Location: [facility] Pathology [place] Report The signing pathologist has (i) examined the relevant preparation(s) for the [facility]ORIAL specimen(s) and (ii) rendered or confirmed the diagnosis(es) . HOSPITAL LABORATORY . ?Surgic al Pathology DIAGNOSIS A - Right mid jawline, skin shave biopsy: - ??Basal cell carcinoma, hurt perficial, nodular and infiltrating patterns, ?present at the peripheral and deep specimen edges - Associated proliferative ? ? actinic keratosis, present at the peripheral specimen edge B - Left dorsal hand, skin shave biopsy: - ??Atypical squamous prolif eration, most consistent with well differentiated squamous cell carcinoma, extending c lose to the peripheral and deep specimen edges on the plane of section examined - Associated actinic keratosis, present at the peripheral sp ecimen edge Electronically signed by: ?Uma Evans MD Verified: ??05/21/2022 14:04 ??Dermatopathologist Performed at: ??-[facility] Dept. of Pathology, [place], [place] ADDITIONAL STUDIES B. ??Multiple step-leveled sections were reviewed. SPECIMEN(S) SUBMITTED A - R mid jawline, shave B - L dorsal hand, shave Referring Identifier: ?(not provided) CLINICAL INFORMATION Erythematous scaling patches treated with shave C&D; BCC/SCC SPECIMEN PROCESSING A - Labeled/Fixative: A, formalin. Quantity/Size: ??Single, 1.1 x 0.9 x 0.1 cm. Tissue Description: Shave of a roberts-pink, finely granular ski n patch. Sections/Processing: Inked, quadrisected and entirely submitted in 1 cassette lab eled A1. B - Labeled/Fixative: B, formalin. Quantity/Size: ??Single, 1.1 x 0.9 x 0.2 cm. Tissue Description: Shave of a roberts white, granular in patch. Sections/Processing: Inked, quadrisected and entirely submitted in 1 cassette lab eled B1. ??sns Specimen (Source) Anatomical Collection Method Collection Time Re ceived Time Location / / Volume Laterality 05/05/2022 12:00 PM EDT Cesar Hogan MD PATHOLOGY/CYTOLOGY ORDERABLE S Performing Organization Address City/State/ZIP Code Phon e Number [place] [phone] from Last 3 Months Insurance Payer Benefit Plan / Subscriber ID Effective Dates Phone Addre ss Type Group MEDICARE MEDICARE PART A [id number] 2021-Present [phone] [id number] [place] [id number] AETNA AETNA PPO OPEN [id number] 2020-Present [phone] [address] [place] [address] Care Teams Heavy Equipment Diesel Mechanic Relationship Specialty Start Date End Date Michelle Izquierdo APRN PCP - General Internal Medicine 03/21/21 [address] [facility] [place] [id number]
--- OUTSIDE RECORDS SUMMARY | 2022-05-23 02:24 | XMS_ITS | Encounter Summary ---
:1945 Author Organization [facility] [place] [address] Care Team Providers Name Role Phone Michelle Izquierdo YUSRA Primary Care Provider Reason for Visit Reason Comments Follow-up Encounter Details Date Type Department Care Team Description 05/05/2022 Office Visit Dermatology at Cesar Hogan [place] (act inic keratosis); Toy FALCON Vitiligo; [address] History of SCC (squamous cell carcinoma) of skin Paulie B DERMATOLOGY [place], [place] [id number] [phone] Social History Tobacco Use Types Packs/Day Years Used Date Former Smoker Smokeless Tobacco: Never Used Sex Assigned at Date Recorded Not on file documented as of this encounter Progress Notes Cesar Hogan MD - 05/05/2022 11:00 AM EDT Problem: 1. ?? 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 ??Vitiligo 3. ??Family history of vitiligo in his mother Keyon follows up and has noted to new lesions of concern. The site on the left nasal sidewall healed well. Physical examination reveals erythematous scaling patches 1 on the right mid jawline, site A, and 1 on the left dorsal hand, site B. These are consistent with SCC versus BCCA's. Otherwise examination of the sun exposed skin is benign. He has no evidence of recurrence of SCCA on the left upper nasal sidewall. Assessment and plan: Probable new SCCA's, right mid jawline site A, and left dorsal hand, site B 1. After obtaining informed consent both sites were anesthetized and removed with shave C&D x3 2. Triple antibiotic ointment and bandage placed. After curettage each site measured 9 mm in diameter 3. Wound care instructions and supplies given 4. Return to clinic here in another 3 months for check on the healing of the sites, and thereafter likely prn follow-ups will be recommended. CC: Michelle Izquierdo APRN documented in this encounter Plan of Treatment Upcoming Encounters Date Type Specialty Care Team Description 08/08/2022 Office Visit Dermatology Cesar Hogan MD [address] [facility] DERMATOLOGY [place], [place] [address] (Wo rk) documented as of this encounter Visit Diagnoses Diagnosis [place] (actinic keratosis) Actinic keratosis Vitiligo History of SCC (squamous cell carcinoma) of skin Personal history of other malignant neop lasm of skin documented in this encounter Care Teams Telephone Sex Worker Relationship Specialty Start Date End Date Michelle Izquierdo APRN PCP - General Internal Medicine 03/21/[address] [place] [address] documented as of this encounter
--- OUTSIDE RECORDS SUMMARY | 2022-05-23 02:24 | XMS_ITS | Encounter Summary ---
:1945 Author Organization [facility] Address [address] [place] [address] Care Team Providers Name Role Phone Unknown, Provider Primary Care Provider Encounter Details Date Type Department Care Team Description 06/13/2021 Lab Requisition [facility] Outr Resulting Lab, Pathology & Laboratory Provider [facility] [address] [place] [address] Social History Tobacco Use Types Packs/Day Years Used Date Never Assessed Sex Assigned at Date Recorded Not on file documented as of this encounter Plan of Treatment Not on filedocumented as of this encounter Procedures Procedure Name Priority Date/Time Associated Diagnosis Comme nts HOMOCYSTEINE Routine 06/13/2021 7:59 EDT Results for this procedure are i n the results section . documented in this encounter Results HOMOCYSTEINE (06/13/2021 7:59 EDT) Pathologist Sig nature Homocysteine 9.8 5.0 - 13.9 umol/L [facility] Specimen Blood - Venous blood (substance) Narrative [facility] - 06/14/2021 9:34 EDT Reference range may not apply to non-fas ting samples. ??It is not recommended that EDTA plasma and serum from the same rajwinder ent be used interchangeably. ??Serum concentrations have been observed to be up to 10% higher than EDTA plasma. Reference range may not apply to serum results. Performing Organization Address City/State/ZIP Code Phon e Number [facility] [address] [place] [address] SERVICES documented in this encounter Visit Diagnoses Not on filedocumented in this encounter Care Teams Linter Tender Relationship Specialty Start Date End Date Unknown, Provider, PCP - General 02/28/21 documented as of this encounter
--- OUTSIDE RECORDS SUMMARY | 2022-05-23 02:24 | XMS_ITS | Encounter Summary ---
:1945 Author Organization [facility] [place] [address] Care Team Providers Name Role Phone Michelle Izquierdo APRN Primary Care Provider Reason for Visit Reason Comments Skin Check Consultation (Routine) - Closed Specialty Diagnoses / Procedures Referred By Contact Refer red To Contact Dermatology Diagnoses Other specified disorders of nose and nasal sinuses Michelle Izquierdo APRN [facility] [address] [place] [id number] Referral ID Status Reason Start Date Expiration Date Visits V isits Requested Authorized [id number] Closed Consult, Test 03/21/2021 03/21/2022 [facility] PCP Updated and/or Approved Encounter Details Date Type Department Care Team Description 06/11/2021 Office Visit Dermatology at Cesar Hogan Vitilig o; Toy [place]CON [place] (actinic keratosis) [address] [facility] Paulie B DERMATOLOGY [place], [place] [id number] [phone] Social History Tobacco Use Types Packs/Day Years Used Date Former Smoker Smokeless Tobacco: Never Used Sex Assigned at Date Recorded Not on file documented as of this encounter Progress Notes Cesar Hogan MD - 06/11/2021 3:15 PM EDT Problem: 1. New patient, initial visit, nonhealing nasal lesion x1 year 2. Vitiligo 3. Family history of vitiligo in his mother Keyon reveals a 75-year-old gentleman who is referred today by Michelle Izquierdo for evaluation of the above-noted lesion. This will scab and open up and then seem to heal but then go through the same process again. No lesions at the temples well. He used to be seen by Dr. Rashawn Viveros in [facility]. He denies any past history ofskin cancer. There is a family history of vitiligo in his mother. 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 He wears a baseball cap while doing so. He does not use sunscreen. The tractor had a canopy but that did not work and apparently could not be repaired.. Physical examination reveals a pleasant 75-year-old gentleman who has a crusting 3 mm area potentially consistent with an actinic keratosis on the left nasal sidewall. He has actinic's on the left and right temples as well. He has vitiliginous patches on the upper back also patches on the bilateral lower extremities and a few on his dorsal forearms. There is no evidence of any malignant lesions. Assessment plan: Actinic keratosis left nasal sidewall left and right temples 1. LN2 x2 applied each of 3 sites 2. Patient reassured about remainder benign skin examination 3. Stressed the importance of sun avoidance precautions. 4. Return to clinic as needed for new lesions/concerns. CC: Michelle Izquierdo APRN documented in this encounter Plan of Treatment Upcoming Encounters Date Type Specialty Care Team Description 08/08/2022 Office Visit Dermatology Cesar Hogan MD [address] [facility] DERMATOLOGY [place], [place] [address] (Wo rk) documented as of this encounter Visit Diagnoses Diagnosis Vitiligo [place] (actinic keratosis) Actinic keratosis documented in this encounter Care Teams Welder Plastic Relationship Specialty Start Date End Date Michelle Izquierdo APRN PCP - General Internal Medicine 03/21/21 [address] [place] [address] documented as of this encounter
--- OUTSIDE RECORDS SUMMARY | 2022-05-23 02:24 | XMS_ITS | Encounter Summary ---
:1945 Author Organization [facility] [place] [address] Care Team Providers Name Role Phone Michelle Izquierdo YUSRA Primary Care Provider Encounter Details Date Type Department Care Team Description 10/22/2021 Hospital Encounter Laboratory [facility] [place] [address] Social History Tobacco Use Types Packs/Day Years Used Date Former Smoker Smokeless Tobacco: Never Used Sex Assigned at Date Recorded Not on file documented as of this encounter Medications at Time of Discharge Medication Sig Dispensed Refills Start Date End Date UNABLE TO FIND Med Name: Heart and 0 Body Supplement UNABLE TO FIND Med Name: Balance of 0 Nature nutritional supplement atorvastatin (Lipitor) 20 mg. 0 05/04/2021 40 mg Tablet co-enzyme Q-10 30 mg Daily 0 03/06/2021 Capsule documented as of this encounter Plan of Treatment Upcoming Encounters Date Type Specialty Care Team Description 08/08/2022 Office Visit Dermatology Cesar Hogan MD [address] [facility] DERMATOLOGY [place], [place] [address] (Wo rk) documented as of this encounter Procedures Procedure Name Priority Date/Time Associated Diagnosis Comme nts SURGICAL PATHOLOGY Routine 10/22/2021 12:00 PM Re sults for this REPORT EST procedure are i n the results section. documented in this encounter Results Surgical Pathology Report (10/22/2021 12:00 PM EST) Component Value Ref Test Analysis Performed At [facility] Method Time Signature Surgical [id number] ? Location: [facility] Report The signing pathologist has (i) examined the relevant preparation(s) for the [facility]ORIAL specimen(s) and (ii) rendered or confirmed the diagnosis(es) . HOSPITAL LABORATORY . ?Surgic al Pathology DIAGNOSIS Nasal sidewall, skin shave: - ??Squamous cell carcinoma, at least in situ, suspicious for superficial invasion, present at the peripheral and deep specimen edges Electronically signed by: ?Stefano Salazar MD Verified: ??11/01/2021 13:37 ??Dermatopathologist Performed at: ??-[facility] Dept. of Pathology, [place], [place] ADDITIONAL STUDIES Interpretation of multiple s tep-leveled slide sections confirms the diagnosis above. SPECIMEN(S) SUBMITTED A - Nasal sidewall, shave () CLINICAL INFORMATION Recurrent hyperkeratotic pap ule after LN 2 in 05/2021. Treated with shave C & D . AK/ SCCA SPECIMEN PROCESSING A - Labeled/Fixative: Patient demographics, formalin. Quantity/Size: ??Single, 0.8 x 0.4 cm. Tissue Description: Nonorien gus aguilar-roberts elliptical skin shave of a central 0.1 cm white papule. Sections/Processing: Inked, trisected and entirely submitted in 1 cassette labele d A1. ??shb Specimen (Source) Anatomical Collection Method Collection Time Re ceived Time Location / / Volume Laterality 10/22/2021 12:00 PM EST Cesar Hogan MD PATHOLOGY/CYTOLOGY ORDERABLE S Performing Organization Address City/State/ZIP Code [place] [address] [facility] [address] documented in this encounter Visit Diagnoses Not on filedocumented in this encounter Care Teams Ironworker Relationship Specialty Start Date End Date Michelle Izquierdo APRN PCP - General Internal Medicine 03/21/21 [address] [place] [address] documented as of this encounter
--- OUTSIDE RECORDS SUMMARY | 2022-05-23 02:24 | XMS_ITS | Encounter Summary ---
:1945 Author Organization [facility] Address [address] [place] [address] Care Team Providers Name Role Phone Unknown, Provider Primary Care Provider Encounter Details Date Type Department Care Team Description 03/06/2021 Lab Requisition [facility] Devin Nguyen fecal Pathology & MD Denise abnormalities Laboratory Medicine [id number] [place] [id number] (Work) [phone] Social History Tobacco Use Types Packs/Day Years Used Date Never Assessed Sex Assigned at Date Recorded Not on file documented as of this encounter Plan of Treatment Not on filedocumented as of this encounter Procedures Procedure Name Priority Date/Time Associated Diagnosis Comme nts SURGICAL PATHOLOGY Today 03/06/2021 9:35 Other fecal Result s for this EDT abnormalities procedure are in the results section. documented in this encounter Results SURGICAL PATHOLOGY (03/06/2021 9:35 EDT) Final Diagnosis A. COLON, TRANSVERSE, POLYP, BIOPSY: [facility] - Fragments of sessile serrated adenoma. [facility] B. COLON, SIGMOID, POLYP, BIOPSY: SERVICE S - Consistent with hyperplastic polyp. Attestation By the signature [facility] Electronica lly below, the attending CENTER signed by Dionte You, physician certifies LABORATORY Nithya Llanes MD on that they have 1) SERVICES 03/07/2021 a t 1016 personally conducted a gross and/or microscopic examination of the described specimen(s), and/or personally interpreted the results of laboratory testing of the described specimen(s), and 2) personally rendered or confirmed the above diagnosis. Clinical History +Cologuard [facility] Gross Description A. [facility] Received in formalin sofi d with proper patient identification (initials C, W) and transverse colon polyp are 4 fragments of roberts soft tissue (ranging from 0.1 cm to 0.2 cm in greatest dimension). The specimen is entirely submitted in A1. [facility] B. SERVICES Received in formalin sofi d with proper patient identification (initials C, with skin) and sigmoid colon polyp is a single fragment of red-brown soft tissue (0.4 x 0.3 x 0.2 cm). The specimen is entirely submitted in B1. MARIBELL SCHWARTZ(ASCP) 03/06/2021 16:35 Performing Lab [facility] Scanned Images [facility] Specimen Tissue - Entire sigmoid colon (body stru cture) Tissue specimen (specimen) - Entire sigm oid colon (body structure) Performing Organization Address City/State/ZIP Code Phon e Number [facility] [address] [place] [address] SERVICES documented in this encounter Visit Diagnoses Diagnosis Other fecal abnormalities documented in this encounter Care Teams Umbrella Supervisor Relationship Specialty Start Date End Date Unknown, Provider, PCP - General 02/28/21 documented as of this encounter
--- OUTSIDE RECORDS SUMMARY | 2022-05-23 02:24 | XMS_ITS | Encounter Summary ---
:1945 Author Organization [facility] [place] [address] Care Team Providers Name Role Phone Michelle Izquierdo YUSRA Primary Care Provider Encounter Details Date Type Department Care Team Description 05/05/2022 Hospital Encounter Laboratory [facility] [place] [address] Social History Tobacco Use Types Packs/Day [...] Office Visit Dermatology Cesar Hogan MD [address] [facility] [place], [place] [address] (Wo rk) documented as of this encounter Procedures Procedure Name Priority Date/Time Associated Diagnosis Comme nts SURGICAL PATHOLOGY Routine 05/05/2022 12:00 PM Re sults for this REPORT EDT procedure are i n the results section. documented in this encounter Results Surgical Pathology Report (05/05/2022 12:00 PM EDT) Component Value Ref Test Analysis Performed At [facility] Method Time Signature Surgical [id number] ? Location: [facility] Report The signing pathologist has (i) examined [...] peripheral sp ecimen edge Electronically signed by: ?Nathan FALCON, Uma Verified: ??05/21/2022 14:04 ??Dermatopathologist Performed at: ??-[facility] Dept. of Pathology, [place], [place] ADDITIONAL STUDIES B. ??Multiple step-leveled sections [...] Organization Address City/State/ZIP Code Phon e Number [place] [phone] documented in this encounter Visit Diagnoses Not on filedocumented in this encounter Care Teams Surgical Consultant Relationship Specialty Start Date End Date Michelle Izquierdo APRN PCP - General Internal Medicine 03/21/[address] [place] [address] documented as of this encounter
[2022-05-23 10:07] LABS: ALT 26 U/L (16-63); AST 21 U/L (15-37); Albumin 3.5 g/dL (3.4-5.0); Alkaline Phosphatase 55 U/L (46-116); Anion Gap 3.9 mmol/L (3-11); BUN 24 mg/dL (7-18); Bilirubin, Total 0.8 mg/dL (0.2-1.0); CO2 31.1 mmol/L (21.0-32.0); Calcium 8.4 mg/dL (8.5-10.1); Calculated LDL 152 mg/dL (<100); Chloride 109 mmol/L (98-107); Cholesterol 236 mg/dL (<200); Glucose 113 mg/dL (74-106); HDL Cholesterol 70 mg/dL (40-60); Potassium 4.3 mmol/L (3.5-5.1); Sodium 144 mmol/L (136-145); Total Protein 6.8 g/dL (6.4-8.2); Triglyceride 72 mg/dL (<150)
== END 2022-05-23 02:23 | disposition home or self-care (01) ==
LOC: LBO 02:22
PROVIDERS: PCP Nurse Practitioner; Visit Provider Nurse Practitioner
DX: E78.5 Hyperlipidemia, unspecified (principal)
CPT/HCPCS: 36415; 80053; 80061

== ENCOUNTER → 2022-07-02 01:30 | Outpatient (CLI) | payer MEDICARE, OTHER, SELFPAY ==
--- NOTE | 2022-07-02 07:00 | DI.US_ITS ---
Exam(s) US CAROTID EXAM: US CAROTID CLINICAL HISTORY: f/u carotid stenosis,i 65.29. TECHNIQUE: Ultrasound carotids performed using grayscale, color-flow, and spectral Doppler imaging. COMPARISON: US US CAROTID from 06/12/2021 FINDINGS: RIGHT CAROTID ARTERY: Plaque: Moderate. Visible worsening from prior Velocity elevation: Noted in the proximal and mid internal carotid artery. LEFT CAROTID ARTERY: Plaque: Moderate. Visible worsening from prior Velocity elevation: Significant velocity elevations in the proximal through mid internal carotid matthew ry. VERTEBRAL ARTERIES: Antegrade flow. Measurements: R Bulb: 76.8cm/s PS / 20.1cm/s ED R CCA: 75.8cm/s PS / 18.9cm/s ED R ECA: 101.2cm/s PS / 21.4cm/s ED R ICA Prox: 174.2cm/s PS / 53.1cm/s ED R ICA Mid: 143.2cm/s PS / 35cm/s ED R ICA Distal: 101.5cm/s PS /26.6cm/s ED R Vert: 51.3cm/s PS / 11.8cm/s ED R SVR: 2.3 R DVR: 2.8 L Bulb: 46.4cm/s PS / 11.8cm/s ED L CCA: 65.3cm/s PS / 13.7cm/s ED L ECA: 117.9cm/s PS / 17.5cm/s ED L ICA Prox: 239.5cm/s PS / 71.6cm/s ED L ICA Mid: 189.6cm/s PS / 32.5cm/s ED L ICA Distal: 93.4cm/s PS / 25.9cm/s ED L Vert: 40.3cm/s PS / 9.7cm/s ED IMPRESSION: 50 to 69 percent stenosis proximal to mid right internal carotid artery. Greater than 70 percent sten osis proximal left internal carotid artery. Worsening stenosis from prior exam. Criteria for Carotid Stenosis: Normal: ICA PSV <125 cm/s no plaque or intimal thickening is visible. <50% stenosis: ICA PSV <125 cm/s and plaque or intimal thickening is visible. 50-69% stenosis: ICA PSV is 125-250 cm/s and plaque is visible. >70% stenosis to near occlusion: ICA PSV >250 cm/s with visible plaque and luminal narrowing. DATA REPOSITORY:
== END ==
PROVIDERS: PCP Nurse Practitioner; Visit Provider Nurse Practitioner
DX: I65.23 Occlusion and stenosis of bilateral carotid arteries (principal)
CPT/HCPCS: 93880

== ENCOUNTER → 2022-09-29 01:49 | Outpatient (CLI) | payer MEDICARE, OTHER, SELFPAY ==
--- NOTE | 2022-09-29 07:30 | DI.MRI_ITS ---
Exam(s) MR LUMBAR SPINE WO EXAM: MR LUMBAR SPINE WO CLINICAL HISTORY: severe LBP radiating left buttock,H/O HERNIATED DISC, M54.50,M79.18,Z87.39. TECHNIQUE: Multiplanar multisequence MRI of the Lumbar spine was performed. COMPARISON: None FINDINGS: Bones: The last intervertebral disc space is designated the L5/S1 level for the numbering purpose of this examination. The vertebral body heights are well maintained. Alignment is satisfactory. Caleb ioma L1. Red marrow reconversion which could be secondary to anemia. Clinical correlation is recomm ended. Cord: The conus tip ends at the T12 level. It is of normal size and signal intensity. T12-L1: No disc herniations or bulges are present. No central spinal canal or neural foraminal stenos is. L1-2: No disc herniations or bulges are present. No central spinal canal or neural foraminal stenosis . L2-3: Mild disc bulging. Mild facet joint degenerative changes.. No central spinal canal or neural foraminal stenosis. L3-4: Mild disc bulging eccentric toward the right. Left lateral disc herniation with superior extru rochelle of disc material adjacent to the lateral aspect of the L3 vertebral body. Facet degenerative ch anges, greater on the left but no significant neural foraminal narrowing. No significant central can al stenosis. L4-5: No disc herniations or bulges are present. Facet degenerative changes, greater on the left. N o central spinal canal or neural foraminal stenosis. L5-S1: Moderate loss of disc height. Endplate osteophytes. Facet degenerative changes. No signifi cant central canal stenosis or neural foraminal narrowing. The visualized SI joints and sacrum are well maintained. Soft tissues: The paraspinal soft tissues are unremarkable. There is a cyst at the lower pole of the left kidney. The aorta is normal in diameter. IMPRESSION: Left lateral disc herniation with superior extrusion of disc material lateral to the L3 vertebral bod ies may impinge on nerve roots. DATA REPOSITORY:
== END ==
PROVIDERS: PCP Nurse Practitioner; Visit Provider Nurse Practitioner
DX: M79.18 Myalgia, other site; Z87.39 Personal history of other diseases of the musculoskeletal system and connective tissue; M51.26 Other intervertebral disc displacement, lumbar region; M47.816 Spondylosis without myelopathy or radiculopathy, lumbar region
CPT/HCPCS: 72148

== ENCOUNTER → 2024-12-15 10:45 | Outpatient (BNVA) | payer MEDICARE, OTHER, SELFPAY | PROVIDERS: PCP Nurse Practitioner; Referring Provider Nurse Practitioner; Visit Provider Physical Therapy Assistant | DX: Z12.11 Encounter for screening for malignant neoplasm of colon (principal); Z86.0100 Personal history of colon polyps, unspecified; I65.23 Occlusion and stenosis of bilateral carotid arteries ==

== ENCOUNTER 2024-12-27 11:29 | Outpatient (CLI) | payer MEDICARE, OTHER, SELFPAY ==
--- NOTE | 2024-12-27 11:15 | RT.EKG_ITS ---
APPROVED REPORT Exam: Resting ECG Reason for Exam: episode of chest pain Patient Location: O HR:47 bpm ECG Measurements Heart Rate 47 AXIS CA 160 P 10 QRSd 90 QRS 17 QT 413 T 26 QTc 365 Conclusion Sinus bradycardia...rate< 50 Normal Electrocardiogram
== END 2024-12-27 11:30 | disposition home or self-care (01) ==
PROVIDERS: PCP Nurse Practitioner; Visit Provider Nurse Practitioner
DX: R07.9 Chest pain, unspecified (principal)
CPT/HCPCS: 93010

== ENCOUNTER 2025-01-11 04:12 | Outpatient (CLI) | payer MEDICARE, OTHER, SELFPAY ==
[2025-01-11 08:29] LABS: Abs Immature Grans 0.02 10^3/uL (0.0-0.06); Absolute Basophil Count 0.04 10^3/uL (0.0-0.2); Absolute Eosinophil Count 0.26 10^3/uL (0.0-0.7); Absolute Lymphocyte Count 1.84 10^3/uL (1.2-3.4); Absolute Monocyte Count 0.44 10^3/uL (0.1-0.8); Absolute Neutrophil Count 2.81 10^3/uL (1.2-6.7); Basophils % 0.7 %; Eosinophils % 4.8 %; HCT 46.1 % (40.0-50.0); HGB 15.3 g/dL (13.5-17.5); Immature Grans % 0.4 %; MCH 30.5 pg (27.0-33.0); MCHC 33.2 % (32.0-36.0); MCV 92 fL (80-95); MPV 9.6 fL (8.0-11.0); Monocytes % 8.1 %; Platelet Count 243 10^3/uL (130-400); RBC 5.02 10^6/uL (4.36-5.78); RDW 12.8 % (11.8-14.1); RDW-SD 43.3 fL; WBC 5.41 10^3/uL (4.4-10.8)
[2025-01-11 08:45] LABS: ALT 22 U/L (16-63); AST 19 U/L (15-37); Albumin 3.6 g/dL (3.4-5.0); Alkaline Phosphatase 71 U/L (46-116); Anion Gap 5.7 mmol/L (3-11); BUN 13 mg/dL (7-18); Bilirubin, Total 0.56 mg/dL (0.2-1.0); CO2 30.3 mmol/L (21.0-32.0); CREATININE 1.3 mg/dL (0.70-1.30); Calcium 8.9 mg/dL (8.5-10.1); Calculated LDL 143 mg/dL (<100); Chloride 110 mmol/L (98-107); Cholesterol 231 mg/dL (<200); Estimated GFR 56.58 (mL/min/1.73m2); Glucose 114 mg/dL (74-106); HDL Cholesterol 66 mg/dL (40-60); Potassium 4.2 mmol/L (3.5-5.1); Sodium 146 mmol/L (136-145); Total Protein 6.9 g/dL (6.4-8.2); Triglyceride 112 mg/dL (<150)
== END 2025-01-11 04:13 | disposition home or self-care (01) ==
LOC: LBO 04:13
PROVIDERS: PCP Nurse Practitioner; Visit Provider Nurse Practitioner
DX: E78.5 Hyperlipidemia, unspecified (principal); I65.23 Occlusion and stenosis of bilateral carotid arteries
CPT/HCPCS: 36415; 80053; 80061; 85025

== ENCOUNTER 2025-01-23 00:46 | Outpatient (CLI) | payer MEDICARE, OTHER, SELFPAY ==
--- NOTE | 2025-01-23 08:01 | ETT_ITS ---
APPROVED REPORT Exam: Exercise Treadmill Patient Location: Out-Patient Room/Bed: Stress Nurse: Paradise Irby RN Ordering Provider:YRN BIRGIT, Contact Number: [phone] BMI: 26.75 Baseline Rhythm: Sinus Bradycardia Indications: Chest pain Medical History Medical History: Bilateral carotid artery stenosis, anxiety, HLD Cardiac Medications: Aspirin, atorvastatin Allergies: Pencillins Cardiac Risk Factors: HLD, former smoker Previous Cardiac Procedures: None Pretest Chest Pain Characteristics: None Exercise History: Physically active Physical Disabilities: None Lung Sounds: Clear to auscultation Heart Sounds: Bradycardia Stress Test Details Test: Exercise stress testing was performed using a Derrick protocol. Rest Stress HR Resting HR Supine: 53 bpm Max Heart Rate (APMHR): 143 bpm Resting HR Standin bpm Target HR (85% APMHR): 122 bpm Max HR Achieved: 128 bpm % of APMHR: 90 Recovery HR: 60 bpm HR response to stress: Normal HR response to stress BP Resting BP Supine: 144/68 mmHg Resting BP Standin/76 mmHg Max BP: 188/68 mmHg Recovery BP: 142/70 mmHg BP response to stress: Normal blood pressure response to stress. ECG Resting ECG: Sinus Bradycardia Stress ECG: Sinus Tachycardia ST Change: No significant ST segment changes noted Arrhythmia: Occasional multifocal PVC's, bigeminy, rare PAC's. Recovery ECG: Sinus Rhythm Recovery ST Change: No significant ST segment changes noted Recovery Arrhythmia: Occasional multifocal PVC's, bigeminy. Clinical Reason for Termination: Target HR Achieved Stress Symptoms: None Exercise duration: 05 min57 sec Highest Stage Reached: Stage 2: 2.5 mph at 12% grade. Exercise capacity: 7.05 METs Angina Score: None Chinchilla Treadmill Score: 5.1 Rate Pressure Product: 00179 Stress ECG Conclusion 1. Resting electrocardiogram was normal 2. Patient exercised on the Derrick protocol and completed a workload of 7 METS 3. Normal heart rate and blood pressure response to exercise. The patient achieved 90% of maximal pr edicted heart rate for age 4. There was no electrocardiographic evidence of myocardial ischemia 5. Occasional PVCs were seen Chinchilla Treadmill Score is 5.1 which is Low risk. Stress Test Summary STAGE Time (mins) Speed (mph) Grade (%) HR BP SpO2 SYMPTOMS METS Supine 53 144/68 93% Standing 83 138/76 1 3 1.7 10 104 180/72 93% 4.5 2 6 2.5 12 122 98% 7 1 min recovery 83 188/62 95% 3 min recovery 62 170/62 6 min recovery 60 142/70 96%
== END 2025-01-23 01:06 ==
LOC: DI 00:46
PROVIDERS: PCP Nurse Practitioner; Visit Provider Internal Medicine Cardiovascular Disease
DX: R07.9 Chest pain, unspecified (principal)
CPT/HCPCS: 93016; 93018; 93017

== ENCOUNTER 2025-02-13 09:11 | Day surgery (SDC) | payer MEDICARE, OTHER, SELFPAY ==
--- NOTE | 2025-02-12 18:54 | PDOC.DSDIS_ITS ---
Date of service: 02/13/25 Discharge Plan Disposition Patient Disposition: Home Condition: Good Discharge Details Reason For Visit: screening colonoscopy Attending Provider: Brenton Christensen Primary Care Provider: Michelle Izquierdo Home Meds and New Rx's Prescriptions: Continued aspirin 81 mg tablet,chewable 81 mg PO DAILY atorvastatin 40 mg tablet See Rx Instructions .ROUTE .COMPLEX Qty: 90 3RF Dose Instruction: TAKE ONE TABLET BY MOUTH EVERY DAY Rx Instructions: TAKE ONE TABLET BY MOUTH EVERY DAY coenzyme Q10 [CoQ-10] 30 mg Capsule 30 mg PO DAILY Discontinued bisacodyl [Dulcolax (bisacodyl)] 5 mg tablet,delayed release (DR/EC) 5 mg PO ONCE Qty: 4 0RF Rx Instructions: Take per colonoscopy instructions provided by ordering providers office polyethylene glycol 3350 17 gram/dose powder 17 g PO ONCE Qty: 238 0RF Rx Instructions: Take per colonoscopy instructions provided by ordering providers office Discharge Instructions Instructions: Colon polyps, Diverticulosis Additional Instructions: Jon, was very nice meeting you today, and I hope you are comfortable through th is colonoscopy and that you have a great day today. As you may or may not recall, during the procedure, I did find and removed 2 small polyps. In fact, one of them might not even be a real polyp. Both of the specimens will be sent to the pathologist for their review, and once I know the nature of the report, my office will be in touch with recommendations for future colonoscopies. Incidentally, he also have a little bit of diverticulosis. Diverticula are little weak spots in the muscular layer of the colon wall. This causes the inside lining or mucosa active to pocket her pouch outwards a bit through the muscular layer. Diverticulosis is extremely common, I find it most patients that I performed colonoscopies on. My general approach is to recommend a diet that is rich in fiber, stay well-hydrated, and avoid symptoms of constipation. I will attach a little bit of information here about diverticulosis as well as colorectal polyps. If you need anything or have any questions at all, please do not hesitate to ask, otherwise we will be in touch once we have the polyp analysis 1. If tolerated, consume a soft, low fiber diet for 1-2 days. 2[address] Do not drive, drink alcohol, operate machinery, make critical decisions, or do activities that require coordination or balance for 24 hours. 3. Because air was put into your colon during the procedure, expelling air from your rectum (passing gas or farting) is normal. 4. You may not have a bowel movement for 1-3 days because of the colonoscopy prep. This is normal. 5. Go directly to the emergency room if you notice any of the following: Develop chills (warm to touch), or if you have a thermometer and your temperature is above 101 Difficulty breathing or difficultly swallowing Persistent vomiting Severe abdominal pain, other than gas cramps Severe chest pain Black, tarry stools Any bleeding ? exceeding one tablespoon 6. Call your physician if the site where your intravenous was started becomes red, swollen, painful, and warm to touch. 7. Your physician has reviewed your pre-procedure medications. Please continue to take those medications as previously ordered. You will be given specific information/education regarding any changes to your medications before leaving. Stand Alone Forms: Anesthesia Discharge InstKami Pearson (DSU) Activity:: Activity as Tolerated Diet:: As Tolerated Discharge Orders Discharge Orders: Discharge Order (Routine); Ordered 02/12/25 Ordered By: Brenton Christensen DS: Diagnosis Discharge Diagnosis (1) Encounter for screening colonoscopy: Status: Acute Asessment and Plan: Follow-up on polypectomy results
--- NOTE | 2025-02-12 18:55 | HPE_ITS ---
Assessment and Plan Assessment and plan (1) Encounter for screening colonoscopy: Status: Acute Assessment and plan: We reviewed the plan for screening colonoscopy as part of routine health maintenance, and I think Jon has a good understanding of the nature of the procedure and what to expect. We can proceed with colonoscopy as planned. History of Present Illness History of Present Illness Chief Complaint: screening colonoscopy Narrative: 79 y/o male with history of carotid artery stenosis s/p carotid endarterectomy (on 03/25/2024 due to L side progressing to 80% blocked)presents for colonoscopy screening pre-op. His last screening was in 2020 , which was remarkable for sessile serrated adenoma and a hyperplastic polyp. He denies a family history of colon cancer. He denies any changes in bowel habits including bloody or black tarry stools, abdominal pain, diarrhea or constipation. He denies constitutional symptoms. He denies chest pain, palpitations, dyspnea or dyspnea with exertion. He denies prior history or family history of adverse reactions or complications with anesthesia. The patient denies any history of stroke, [place], seizures, bleeding or clotting disorders. He denies having any implanted metal in his body. Since Jon's last office encounter, there have been no major changes with regards to the interval history [facility] All Active Problems (Updated 02/13/25 @ 10:31 by Brenton Christensen MD) Encounter for screening colonoscopy (Acute) Asymptomatic stenosis of left carotid artery (Acute) 03/25/24 overnight admission to Asymptomatic bilateral carotid artery stenosis (Acute ~07/2023) 05/09/24 f/u at [facility] 12/07/23 f/u [facility] Vitiligo (Acute) 05/05/22 Dr Hogan Actinic keratosis (Acute) Serrated adenoma of colon (Acute ~02/2021) Colon polyp, hyperplastic (Acute ~02/2021) Nasal lesion (Acute) Colon cancer screening (Acute) Positive colorectal cancer screening using Cologuard test (Acute) Anxiety (Chronic) Hyperlipidemia (Acute 02/26/15) Medical History (Updated 02/13/25 @ 10:31 by Brenton Christensen MD) H/O squamous cell carcinoma of skin (~09/2021) 05/05/22 Dr Hogan withj ? of new SCCA's R jaw line and ,and L dorsal hand - sites removed with shave. F/U 3 months History of tobacco use disorder (10/03/15) Anxiety Nasal lesion Cervicalgia (12/25/20) Dr. Hunter to PT Carotid stenosis, right Right thyroid nodule 11/2020, repeat 02/2021 B12 deficiency Chest pain due to psychological stress Bilateral hand pain (10/11/15) Chronic sore throat (02/11/16) Eczema (02/26/15) Epicondylitis (02/26/15) Left inguinal hernia (10/31/15) Low back pain (02/26/15) Pain in left testicle (10/31/15) Right foot pain (10/11/15) Right inguinal hernia (10/31/15) Rosacea (02/26/15) Surgical History H/O carotid endarterectomy 02/2024 History of colonoscopy (~01/2025) Family History Father No problems noted. Mother No problems noted. Social History Smoking/Tobacco Use Status: Former Tobacco Use Quit Date: 11/30/79 Smoking risk assessment performed?: Yes Alcohol Intake: current Alcohol Intake frequency: 3 or more drinks per day Alcohol type: wine and hard liquor Drug use: Never Substance use type: does not use Housing: house Do you feel safe at home: Yes Do you feel safe in your relationship?: Yes Meds Allergies and Home Medications Allergies Allergy/AdvReac Type Severity Reaction Status Date / Time Penicillins Allergy Unknown unknown Verified 02/13/25 09:40 Home Medications ?Medication ?Instructions ?Recorded ?Confirmed ?Type coenzyme Q10 30 mg capsule (CoQ-10) 30 mg PO DAILY 03/06/21 02/13/25 History aspirin 81 mg chewable tablet 81 mg PO DAILY 03/29/24 02/09/25 History atorvastatin 40 mg tablet See Rx Instructions .Route 07/12/24 02/13/25 Rx .COMPLEX #90 tabs Exam Const General: cooperative, healthy appearing and not in acute distress Neck Neck: normal visual inspection, no lymphadenopathy and supple Resp Effort & Inspection: normal respiratory effort Auscultation: clear to auscultation bilaterally Cardio Jugular venous pressure: no JVD Rate: regular rate Rhythm: regular rhythm Heart Sounds: S1 normal and S2 normal GI Inspection: normal to inspection Palpation: soft, no guarding, hernia (Reducible right inguinal) and nontender Percussion: normal to percussion Auscultation: normal bowel sounds Neuro General: patient alert, patient awake and patient oriented x3 Psych Appearance: grossly normal
--- NOTE | 2025-02-12 18:58 | W.COLOREPORT ---
Date of service: 02/13/25 Time of Service: 11:21 Colonoscopy Report Date of procedure: 02/13/25 Pre-op diagnosis general: screening colonoscopy Post-op diagnosis procedure note: other (Colorectal polyps, diverticulosis) Procedure: colonoscopy with polypectomy Surgeon: Brenton Christensen Anesthesia Type: General:No Airway Estimated blood loss (mL): 5 Pathology: other (0.25 cm flat polyp at 60 cm, 0.25 cm flat rectal polyp) Complications: None Disposition: same day Indications: Jon is a 79 year old man who needs his next screening colonoscopy Prep: Miralax/Dulcolax Procedure Start Time: 10:40 Procedure End Time: 11:01 Retraction Time: 13 Findings: Sigmoid diverticulosis; 0.25 cm flat polyp at 60 cm, 0.25 cm flat rectal polyp Procedure Description: After the induction of anesthesia, and with the patient in left lateral decubitus position, I began by performing an external anorectal exam.? Perineum and skin were normal, as was the anal verge.? There was no evidence of external hemorrhoids.? Next, I performed a digital rectal exam.? I did not appreciate any abnormal findings.? Next, I advanced a colonoscope into the rectal vault.? I performed retroflexion.? This appeared normal.? Using insufflation, I then advanced the colonoscope beyond the rectal folds and into the sigmoid colon before advancing towards the cecum.? The quality of the prep was adequate.? The scope was noted to be in the cecum by identification of the ileocecal valve and appendiceal orifice.? I then began withdrawing the colonoscope using repeated irrigation as necessary for full evaluation of the colonic mucosa. Around 60 cm from the anal verge was a 0.25 cm flat polyp. Narrowband imaging was used to assist with the analysis. It appeared most consistent with benign polypoid mucosa, or perhaps benign lymphoid aggregate, but to be safe given the patient's history of adenomatous polyps, I did perform cold forceps polypectomy here. There was minimal bleeding. As we continued with colonoscopy, a few scattered sigmoid diverticula were noted. Once the scope was withdrawn to the level of the rectum, great care was taken to examine portions of the rectal folds.? In the upper portion of the rectal vault was a 0.25 cm flat polyp. This was also removed with cold forceps with minimal bleeding. Finally, the scope was withdrawn and the patient was brought to the [facility] recovery unit as the anesthetic wore off. ?The findings and instructions were shared with the patient prior to discharge. Weidman Bowel Prep Weidman Bowel Prep Right Colon: 2 Left Colon: 2 Transverse Colon: 2 Total Score: 6
[2025-02-13 09:20] VITALS: BP 151/63; PULSE 76; RESP 16; TEMP 36; O2SAT 96
[2025-02-13] MEDS: Lactated Ringers 1,000 ML 80 ML IV (09:55)
--- NOTE | 2025-02-13 09:59 | ANES.PREOP_ITS ---
General Info Date of Service Date Performed: 02/13/25 Height: 5 ft 10 in Weight: 72.1 kg Body Mass Index (BMI): 22.8 Surgical Procedure: Operation Date: 02/13/25 10:50 Proposed Procedure Side Surgeon p Colonoscopy Brenton Christensen MD Meds Allergies and Home Medications Allergies Allergy/AdvReac Type Severity Reaction Status Date / Time Penicillins Allergy Unknown unknown Verified 02/13/25 09:40 Home Medication ?Medication ?Instructions ?Recorded coenzyme Q10 30 mg capsule (CoQ-10) 30 mg PO DAILY 03/06/21 aspirin 81 mg chewable tablet 81 mg PO DAILY 03/29/24 atorvastatin 40 mg tablet See Rx Instructions .Route 07/12/24 .COMPLEX #90 tabs Current Visit Medications: Current Medications Generic Name Dose Route Start Last Admin Trade Name Freq PRN Reason Stop Dose Admin Ringer's Solution 1,000 mls @ 80 mls/hr 02/13/25 06:00 IV 02/13/25 23:59 INFUSION TALIA IV Miscellaneous Supplies 1 each 02/13/25 06:00 Iv Access IV 02/13/25 23:59 DIRECTED TALIA Sodium Chloride 0 ml 02/13/25 06:00 Normal Saline Flush 10 Ml Syr IV 02/13/25 23:59 PRN PRN Sodium Chloride 0 ml 02/13/25 06:00 Normal Saline 10 Ml Vial IJ 02/13/25 23:59 DIRECTED PRN Sterile Water 0 ml 02/13/25 06:00 Water,Injection,Sterile 10 Ml Vial IJ 02/13/25 23:59 DIRECTED PRN PFSH Active Problems Active Problems: Problem Status Onset Code Asymptomatic stenosis of left carotid artery Acute I65.22 Asymptomatic bilateral carotid artery stenosis Acute ~07/2023 I65.23 Vitiligo Acute L80 Actinic keratosis Acute L57.0 Serrated adenoma of colon Acute ~02/2021 D12.6 Colon polyp, hyperplastic Acute ~02/2021 K63.5 Nasal lesion Acute J34.89 Colon cancer screening Acute Z12.11 Positive colorectal cancer screening using Cologuard test Acute R19.5 Anxiety Chronic F41.9 Hyperlipidemia Acute 02/26/15 E78.5 Medical History Medical History H/O squamous cell carcinoma of skin (~09/2021) 05/05/22 Dr Hogan withj ? of new SCCA's R jaw line and ,and L dorsal hand - sites removed with shave. F/U 3 months History of tobacco use disorder (10/03/15) Anxiety Nasal lesion Cervicalgia (12/25/20) Dr. Hunter to PT Carotid stenosis, right Right thyroid nodule 11/2020, repeat 02/2021 B12 deficiency Chest pain due to psychological stress Bilateral hand pain (10/11/15) Chronic sore throat (02/11/16) Eczema (02/26/15) Epicondylitis (02/26/15) Left inguinal hernia (10/31/15) Low back pain (02/26/15) Pain in left testicle (10/31/15) Right foot pain (10/11/15) Right inguinal hernia (10/31/15) Rosacea (02/26/15) Surgical History Surgical History H/O carotid endarterectomy 02/2024 History of colonoscopy (~01/2025) Tobacco Smoking/Tobacco Use Status: Former Tobacco Use Passive smoking exposure: No Alcohol Alcohol Intake: current Alcohol intake frequency: 3 or more drinks per day Alcohol type: wine and hard liquor Substance Use Substance use: Never Substance use type: does not use Vital Signs and Lab Results Vital Signs Most Recent Vital Signs in EMR: Most Recent Vital Signs Temp Pulse Resp BP Pulse Ox 36 C L 76 16 151/63 H 96 02/13/25 09:20 02/13/25 09:20 02/13/25 09:20 02/13/25 09:20 02/13/25 09:20 Lab Results Blood Type / Crossmatch: No Data to Display Complete Blood Count: No Data to Display Complete Metabolic Panel: No Data to Display Liver Function Panel: No Data to Display Coagulation Panel: No Data to Display Cardiac Panel: No Data to Display Arterial Blood Gas: No Data to Display Venous Blood Gas: No Data to Display Pancreas Panel: No Data to Display Thyroid Panel: No Data to Display Infectious Disease: No Data to Display Blood Cultures: No Data to Display Toxicology Panel: No Data to Display Imaging and Studies Imaging and Studies Study information below may be from another EMR and interpreted by another provider. Please see original notes in EMR for more complete details. EKG Summary: 12/24/27Exam: Resting ECG Reason for Exam: episode of chest pain Patient Location: O HR:47 bpm ECG Measurements Heart Rate 47 AXIS IA 160 P 10 QRSd 90 QRS 17 QT 413 T26 QTc 365 Conclusion Sinus bradycardia...rate< 50 Normal Electrocardiogram Stress Test Summary: 01/23/25: Exam: Exercise Treadmill Patient Location: Out-Patient Room/Bed: Stress Nurse: Paradise Irby RN Ordering Provider:YRN GENAO, Contact Number: [phone] BMI: 26.75 Baseline Rhythm: Sinus Bradycardia Indications: Chest pain Medical History Medical History: Bilateral carotid artery stenosis, anxiety, HLD Cardiac Medications: Aspirin, atorvastatin Allergies: Pencillins Cardiac Risk Factors: HLD, former smoker Previous Cardiac Procedures: None Pretest Chest Pain Characteristics: None Exercise History: Physically active Physical Disabilities: None Lung Sounds: Clear to auscultation Heart Sounds: Bradycardia Stress Test Details Test: Exercise stress testing was performed using a Derrick protocol. Rest Stress HR Resting HR Supine: 53 bpmMax Heart Rate (APMHR): 143 bpm Resting HR Standin bpmTarget HR (85% APMHR): 122 bpm Max HR Achieved: 128 bpm % of APMHR: 90 Recovery HR: 60 bpm HR response to stress: Normal HR response to stress BP Resting BP Supine: 144/68 mmHg Resting BP Standin/76 mmHg Max BP: 188/68 mmHg Recovery BP: 142/70 mmHg BP response to stress: Normal blood pressure response to stress. ECG Resting ECG: Sinus Bradycardia Stress ECG: Sinus Tachycardia ST Change: No significant ST segment changes noted Arrhythmia: Occasional multifocal PVC's, bigeminy, rare PAC's. Recovery ECG: Sinus Rhythm Recovery ST Change: No significant ST segment changes noted Recovery Arrhythmia: Occasional multifocal PVC's, bigeminy. Clinical Reason for Termination: Target HR Achieved Stress Symptoms: None Exercise duration: 05 min57 sec Highest Stage Reached: Stage 2: 2.5 mph at 12% grade. Exercise capacity: 7.05 METs Angina Score: None Chinchilla Treadmill Score: 5.1 Rate Pressure Product: 98150 Stress ECG Conclusion 1. Resting electrocardiogram was normal 2. Patient exercised on the Derrick protocol and completed a workload of 7 METS 3. Normal heart rate and blood pressure response to exercise. The patient achieved 90% of maximal predicted heart rate for age 4. There was no electrocardiographic evidence of myocardial ischemia 5. Occasional PVCs were seen Chinchilla Treadmill Score is 5.1 which is Low risk. Stress Test Summary STAGETime (mins)Speed (mph)Grade (%)[id number]/6893% [id number]/76 [id number]/7293%4.5 [id number]%7 1 min [id number]/6295% 3 min uvbgwvvj21084/62 6 min [id number]/7096% Dictated by: SARA CAGLE MD Dictated:: 01/23/25 1548 <Electronically signed by Sara Cagle M.D. in [place]> 01/24/25 0743 Transcribed Date: 01/23/25 Echocardiogram Summary: 04/16/15: STUDY CONCLUSIONS* Summary: 1. Left ventricle: The cavity size was normal. Wall thickness was normal. Systolic function was normal. The estimated ejection fraction was 60-65%. Wall motion was normal; there were no regional wall motion abnormalities. 2. Mitral valve: Mild regurgitation. 3. Right ventricle: The cavity size was normal. Wall thickness was normal. Systolic function was normal. 4. Pulmonary arteries: Pulmonary systolic pressure was in the range of 10mm Hg to 20mm Hg. Carotid Artery Summary:: 07/02/22: RIGHT CAROTID ARTERY: Plaque: Moderate. Visible worsening from prior Velocity elevation: Noted in the proximal and mid internal carotid artery. LEFT CAROTID ARTERY: Plaque: Moderate. Visible worsening from prior Velocity elevation: Significant velocity elevations in the proximal through mid internal carotid artery. VERTEBRAL ARTERIES: Antegrade flow. Anesthesia Assessment and Plan Anesthesia History Personal History: No History of Anesthesia Complications Family History: No Family History of Anesthesia Complications Exercise Tolerance Exercise Tolerance: Metabolic Equivalents>4 Cardiac & Pulmonary Exam Cardiac Exam: Normal S1/S2 Heart Sounds Pulmonary Exam: Clear Bilateral Breath Sounds Implantable Cardiac Device Does patient have a Pacemaker or an ICD?: No Airway Exam Known Difficult Airway: No Mallampati Class: 2 Mouth Opening: Normal (> 3cm) Thyromental Distance: Greater than 3 cm Neck Range of Motion: Full ROM Neck Circumference: Normal Teeth Condition: Normal Dentition ASA Classification ASA Score: ASA 3 Emergency Case?: No NPO Status NPO Status: NPO Clears >2 hours, Solids >8 hours Anesthesia Plan Resuscitation Status: Full Code Anesthesia Technique: General Anesthesia Airway Planned: Natural Airway Monitors Used: Standard Monitors
[2025-02-13 10:04] VITALS: BMI 22.8
--- NOTE | 2025-02-13 10:53 | BOWEL_PTH ---
PATIENT: Keyon Cohen LOC: MIC U#:[id number] AGE/SX: 79/M ROOM: RE02/13/[address]: Brenton Christensen MD : 1945 BED: DIS: 02/13/2025 SPEC #: [id number] RECD: 02/13/25 13:05 STATUS: NONA RE #: [id number] ASHLEY: 02/13/25 10:[address]: Brenton Christensen DEPT: Surgical Specimen RECD BY: Renate Esquivel ENTERED: 02/13/25 13:07 SP TYPE: Bowel OTHR DR: Michelle Izquierdo APRN Tissues: 1 - BIOPSY BOWEL 2 - BIOPSY BOWEL Procedures: GROSS AND MICRO LEVEL 4 Comments: [id number]
[2025-02-13 11:06] VITALS: BP 127/66; PULSE 61; RESP 16; TEMP 36.3; O2SAT 98
--- NOTE | 2025-02-13 11:10 | W.ANESPOSTOP ---
Postoperative Evaluation Date, Time and Location Date Performed: 02/13/25 Time Performed: 11:07 Patient Location: Day Surgery Unit Vital Signs Most Recent Imported Vital Signs: Most Recent Vital Signs Temp Pulse Resp BP Pulse Ox 36 C L 76 16 151/63 H 96 02/13/25 09:20 02/13/25 09:20 02/13/25 09:20 02/13/25 09:20 02/13/25 09:20 Pain Score Most Recent Pain Score: Most Recent Pain Score Pain Level 0 02/13/25 09:20 Assessment Mental Status: Awake (Alert & Oriented to Patient Baseline) Airway and Respiratory Function: Patent airway with normal (patient baseline) respiratory exam Cardiovascular Function: Hemodynamically Stable Hydration Status: Adequately Hydrated Nausea & Vomiting: No Nausea or Vomiting Pain: Pt. Denies Any Pain Peripheral Nerve Block: Patient did not receive a nerve block
[2025-02-13 11:47] VITALS: BP 141/75; PULSE 62; RESP 16; TEMP 36.2; O2SAT 95
== END 2025-02-13 11:53 | disposition home or self-care (01) ==
LOC: SUR 09:11
PROVIDERS: PCP Nurse Practitioner; Visit Provider Surgery
PROC: 0DJD8ZZ Inspection of Lower Intestinal Tract, Via Natural or Artificial Opening Endoscopic (ICD-10-PCS; CPT 45378; principal; 2025-02-13 10:45)
DX: Z12.11 Encounter for screening for malignant neoplasm of colon (principal); K63.5 Polyp of colon; K57.30 Diverticulosis of large intestine without perforation or abscess without bleeding
CPT/HCPCS: 45380; 88305; J2003; J2704

== ENCOUNTER 2025-10-09 03:23 | Outpatient (CLI) | payer MEDICARE, OTHER, SELFPAY ==
[2025-10-09 14:28] LABS: TSH (W/Ref FT4) 1.47 uIU/mL (0.36-3.74)
== END 2025-10-09 03:24 | disposition home or self-care (01) ==
LOC: LBO 03:23
DX: E04.1 Nontoxic single thyroid nodule (principal)
CPT/HCPCS: 36415; 84443